=== PATIENT | male | born 1955 | race Caucasian/White ===

== ENCOUNTER 2019-04-18 11:03 | Observation (INO) | payer BC ==
--- NOTE | 2019-04-18 11:18 | EDM.PDOC ---
<Sarah Rm - Last Filed: 04/18/19 14:49> ED HPI GENERAL MEDICAL PROBLEM - General Chief Complaint: Gastrointestinal Problem Stated Complaint: [facility] Time Seen by Provider: 04/18/19 11:17 Source of Information: Reports: Patient History Limitations: Reports: No Limitations - History of Present Illness INITIAL COMMENTS - FREE TEXT/NARRATIVE: 63 year old male presents to the ED by [facility]. Pt reports that he got up this morning and had his coffee and then went and had a bowel movement. This occurred about 0800 this morning. Pt states that he felt like he was having diarrhea but when he got up from the toilet it was full of susan red blood. The patient then went to the [place] [facility] and while there had a syncopal episode which he does not remember. The patient was then transported here by EMS. Pt states that he takes a baby aspirin daily and does use ibuprofen frequently for aches and pains. He says some days he does not take any but some days he takes it several times per day. When he does take it, he takes 2 tabs. He most recently took this at about 0800 this morning. - Related Data Allergies Allergy/AdvReac Type Severity Reaction Status Date / Time Penicillins Allergy Intermediate Hives Verified 04/18/19 11:17 Home Meds: Home Meds Aspirin 81 mg PO DAILY 04/18/19 [History] Losartan [Cozaar] 100 mg PO DAILY 04/18/19 [History] Multivitamin [Multivitamins] 1 tab PO DAILY 04/18/19 [History] hydroCHLOROthiazide [Hydrochlorothiazide] 25 mg PO DAILY 04/18/19 [History] ED ROS GENERAL - Review of Systems Review Of Systems: See Below Constitutional: Reports: No Symptoms HEENT: Reports: No Symptoms Respiratory: Reports: No Symptoms Cardiovascular: Reports: Lightheadedness. Denies: Chest Pain, Dyspnea on Exertion, Edema, Palpitations Endocrine: Reports: No Symptoms GI/Abdominal: Reports: Bloody Stool, Hematochezia. Denies: Abdominal Pain, Black Stool, Hematemesis, Melena, Nausea, Vomiting Musculoskeletal: Reports: No Symptoms Skin: Reports: No Symptoms Neurological: Reports: No Symptoms Psychiatric: Reports: No Symptoms Hematologic/Lymphatic: Reports: No Symptoms Immunologic: Reports: No Symptoms ED EXAM, GI/ABD - Physical Exam Exam: See Below Text/Narrative:: Rectal exam performed. No hemorrhoids noted. No fissures noted in the rectal vault. Hemoccult positive. Exam Limited By: No Limitations General Appearance: Alert, WD/WN, No Apparent Distress Ears: Normal External Exam, Hearing Grossly Normal Nose: Normal Inspection Throat/Mouth: Normal Inspection, Normal Lips, Normal Oropharynx, Normal Voice, No Airway Compromise Head: Atraumatic, Normocephalic Neck: Normal Inspection, Supple, Non-Tender Respiratory/Chest: No Respiratory Distress, Lungs Clear, Normal Breath Sounds, No Accessory Muscle Use, Chest Non-Tender Cardiovascular: Normal Peripheral Pulses, Regular Rate, Rhythm, No Edema, No Murmur GI/Abdominal Exam: Normal Bowel Sounds, Soft, Non-Tender, No Distention. No: Guarding, Rigid (Male) Exam: Deferred Rectal (Males) Exam: Normal Exam, Normal Rectal Tone, Bloody Stool, Heme + Stool. No: Hemorrhoids, Rectal Fissure, Tenderness Extremities: Normal Inspection, Normal Range of Motion, Non-Tender, No Pedal Edema, Normal Capillary Refill Neurological: Alert, Oriented, Normal Cognition, No Motor/Sensory Deficits Psychiatric: Normal Affect, Normal Mood Skin Exam: Warm, Dry, Intact, Normal Color, No Rash Lymphatic: No Adenopathy Course - Vital Signs Last Recorded V/S: Last Vital Signs Temp 37.0 C 04/18/19 11:12 Pulse 68 04/18/19 11:12 Resp 11 L 04/18/19 11:12 BP 144/11 H 04/18/19 11:12 Pulse Ox 98 04/18/19 11:12 Orthostatic Blood Pressure [ 139/96 Standing] Orthostatic Blood Pressure [ 145/102 Sitting] Orthostatic Blood Pressure [ 153/94 Supine] - Orders/Labs/Meds Orders: Active Orders 24 hr Category Date Time Status EKG 12 Lead [EKG Documentation Completion] [RC] STAT Care 04/18/19 11:44 Active Labs: Laboratory Tests 04/18/19 04/18/19 04/18/19 Range/Units 12:14 12:14 12:14 WBC 13.61 H (4.23-9.07) K/mm3 RBC 4.23 L (4.63-6.08) M/mm3 Hgb 13.3 L D (13.7-17.5) gm/dl Hct 39.0 L (40.1-51.0) % MCV 92.2 (79.0-92.2) fl MCH 31.4 (25.7-32.2) pg MCHC 34.1 (32.2-35.5) g/dl RDW Std Deviation 42.0 (35.1-43.9) fL Plt Count 221 (163-337) K/mm3 MPV 10.1 (9.4-12.3) fl Neut % (Auto) 89.0 H (34.0-67.9) % Lymph % (Auto) 6.5 L (21.8-53.1) % [place] % (Auto) 4.2 L (5.3-12.2) % Eos % (Auto) 0.1 L (0.8-7.0) Baso % (Auto) 0.1 (0.1-1.2) % Neut # (Auto) 12.09 H (1.78-5.38) K/mm3 Lymph # (Auto) 0.89 L (1.32-3.57) K/mm3 [place] # (Auto) 0.57 (0.30-0.82) K/mm3 Eos # (Auto) 0.02 L (0.04-0.54) K/mm3 Baso # (Auto) 0.02 (0.01-0.08) K/mm3 Manual Slide Review Abnormal smear PT 11.4 (9.7-12.0) SECONDS INR 1.05 APTT 27 (22-31) SECONDS Sodium 139 (136-145) mEq/L Potassium 4.1 (3.5-5.1) mEq/L Chloride 106 (98-107) mEq/L Carbon Dioxide 21 (21-32) mEq/L Anion Gap 16.1 H (5-15) BUN 20 H (7-18) mg/dL Creatinine 0.9 (0.7-1.3) mg/dL Est Cr Clr Drug Dosing 83.39 mL/min Estimated GFR (MDRD) > 60 (>60) mL/min BUN/Creatinine Ratio 22.2 H (14-18) Glucose 166 H (80-115) mg/dL Calcium 8.1 L (8.5-10.1) mg/dL Total Bilirubin 1.5 H (0.2-1.0) mg/dL AST 44 H (15-37) U/L ALT 71 H (16-63) U/L Alkaline Phosphatase 74 (46-116) U/L Total Protein 6.3 L (6.4-8.2) g/dl Albumin 3.3 L (3.4-5.0) g/dl Globulin 3.0 gm/dL Albumin/Globulin Ratio 1.1 (1-2) Blood Type Gel Antibody Screen 04/18/19 Range/Units 12:14 WBC (4.23-9.07) K/mm3 RBC (4.63-6.08) M/mm3 Hgb (13.7-17.5) gm/dl Hct (40.1-51.0) % MCV (79.0-92.2) fl MCH (25.7-32.2) pg MCHC (32.2-35.5) g/dl RDW Std Deviation (35.1-43.9) fL Plt Count (163-337) K/mm3 MPV (9.4-12.3) fl Neut % (Auto) (34.0-67.9) % Lymph % (Auto) (21.8-53.1) % [place] % (Auto) (5.3-12.2) % Eos % (Auto) (0.8-7.0) Baso % (Auto) (0.1-1.2) % Neut # (Auto) (1.78-5.38) K/mm3 Lymph # (Auto) (1.32-3.57) K/mm3 [place] # (Auto) (0.30-0.82) K/mm3 Eos # (Auto) (0.04-0.54) K/mm3 Baso # (Auto) (0.01-0.08) K/mm3 Manual Slide Review PT (9.7-12.0) SECONDS INR APTT (22-31) SECONDS Sodium (136-145) mEq/L Potassium (3.5-5.1) mEq/L Chloride (98-107) mEq/L Carbon Dioxide (21-32) mEq/L Anion Gap (5-15) BUN (7-18) mg/dL Creatinine (0.7-1.3) mg/dL Est Cr Clr Drug Dosing mL/min Estimated GFR (MDRD) (>60) mL/min BUN/Creatinine Ratio (14-18) Glucose (80-115) mg/dL Calcium (8.5-10.1) mg/dL Total Bilirubin (0.2-1.0) mg/dL AST (15-37) U/L ALT (16-63) U/L Alkaline Phosphatase (46-116) U/L Total Protein (6.4-8.2) g/dl Albumin (3.4-5.0) g/dl Globulin gm/dL Albumin/Globulin Ratio (1-2) Blood Type A POSITIVE Gel Antibody Screen Negative Meds: Medications Discontinued Medications Generic Name Dose Route Start Last Admin Trade Name Senthil PRN Reason Stop Dose Admin Lactated Ringer's 1,000 mls @ 999 mls/hr 04/18/19 12:18 04/18/19 12:22 Ringers, Lactated IV 04/18/19 13:18 999 mls/hr .BOLUS ONE Administration Sodium Chloride Confirm 04/18/19 12:16 04/18/19 12:23 Normal Saline Administered 04/18/19 12:17 Not Given Dose 1,000 mls @ as directed .ROUTE .STK-MED ONE - Re-Assessments/Exams Free Text/Narrative Re-Assessment/Exam: 04/18/19 12:22 Pt's heart rate dropped into the 40's and his blood pressure to 60 systolic when lab in drawing blood. Pt was placed supine and given a Liter of LR. Departure - Departure Disposition: Admitted As Inpatient 68 Clinical Impression: Lower GI bleed - Discharge Information Referrals: Amanda Damon NP [Primary Care Provider] - Forms: ED Department Discharge <Spike Flores - Last Filed: 04/18/19 14:54> Social & Family History - Living Situation & Occupation Living situation: Reports: Occupation: Employed Course - Orders/Labs/Meds Orders: Active Orders 24 hr Category Date Time Status EKG 12 Lead [EKG Documentation Completion] [RC] STAT Care 04/18/19 11:44 Active Labs: Laboratory Tests 04/18/19 04/18/19 04/18/19 Range/Units 12:14 12:14 12:14 WBC 13.61 H (4.23-9.07) K/mm3 RBC 4.23 L (4.63-6.08) M/mm3 Hgb 13.3 L D (13.7-17.5) gm/dl Hct 39.0 L (40.1-51.0) % MCV 92.2 (79.0-92.2) fl MCH 31.4 (25.7-32.2) pg MCHC 34.1 (32.2-35.5) g/dl RDW Std Deviation 42.0 (35.1-43.9) fL Plt Count 221 (163-337) K/mm3 MPV 10.1 (9.4-12.3) fl Neut % (Auto) 89.0 H (34.0-67.9) % Lymph % (Auto) 6.5 L (21.8-53.1) % [place] % (Auto) 4.2 L (5.3-12.2) % Eos % (Auto) 0.1 L (0.8-7.0) Baso % (Auto) 0.1 (0.1-1.2) % Neut # (Auto) 12.09 H (1.78-5.38) K/mm3 Lymph # (Auto) 0.89 L (1.32-3.57) K/mm3 [place] # (Auto) 0.57 (0.30-0.82) K/mm3 Eos # (Auto) 0.02 L (0.04-0.54) K/mm3 Baso # (Auto) 0.02 (0.01-0.08) K/mm3 Manual Slide Review Abnormal smear PT 11.4 (9.7-12.0) SECONDS INR 1.05 APTT 27 (22-31) SECONDS Sodium 139 (136-145) mEq/L Potassium 4.1 (3.5-5.1) mEq/L Chloride 106 (98-107) mEq/L Carbon Dioxide 21 (21-32) mEq/L Anion Gap 16.1 H (5-15) BUN 20 H (7-18) mg/dL Creatinine 0.9 (0.7-1.3) mg/dL Est Cr Clr Drug Dosing 83.39 mL/min Estimated GFR (MDRD) > 60 (>60) mL/min BUN/Creatinine Ratio 22.2 H (14-18) Glucose 166 H (80-115) mg/dL Calcium 8.1 L (8.5-10.1) mg/dL Total Bilirubin 1.5 H (0.2-1.0) mg/dL AST 44 H (15-37) U/L ALT 71 H (16-63) U/L Alkaline Phosphatase 74 (46-116) U/L Total Protein 6.3 L (6.4-8.2) g/dl Albumin 3.3 L (3.4-5.0) g/dl Globulin 3.0 gm/dL Albumin/Globulin Ratio 1.1 (1-2) Blood Type Gel Antibody Screen 04/18/19 Range/Units 12:14 WBC (4.23-9.07) K/mm3 RBC (4.63-6.08) M/mm3 Hgb (13.7-17.5) gm/dl Hct (40.1-51.0) % MCV (79.0-92.2) fl MCH (25.7-32.2) pg MCHC (32.2-35.5) g/dl RDW Std Deviation (35.1-43.9) fL Plt Count (163-337) K/mm3 MPV (9.4-12.3) fl Neut % (Auto) (34.0-67.9) % Lymph % (Auto) (21.8-53.1) % [place] % (Auto) (5.3-12.2) % Eos % (Auto) (0.8-7.0) Baso % (Auto) (0.1-1.2) % Neut # (Auto) (1.78-5.38) K/mm3 Lymph # (Auto) (1.32-3.57) K/mm3 [place] # (Auto) (0.30-0.82) K/mm3 Eos # (Auto) (0.04-0.54) K/mm3 Baso # (Auto) (0.01-0.08) K/mm3 Manual Slide Review PT (9.7-12.0) SECONDS INR APTT (22-31) SECONDS Sodium (136-145) mEq/L Potassium (3.5-5.1) mEq/L Chloride (98-107) mEq/L Carbon Dioxide (21-32) mEq/L Anion Gap (5-15) BUN (7-18) mg/dL Creatinine (0.7-1.3) mg/dL Est Cr Clr Drug Dosing mL/min Estimated GFR (MDRD) (>60) mL/min BUN/Creatinine Ratio (14-18) Glucose (80-115) mg/dL Calcium (8.5-10.1) mg/dL Total Bilirubin (0.2-1.0) mg/dL AST (15-37) U/L ALT (16-63) U/L Alkaline Phosphatase (46-116) U/L Total Protein (6.4-8.2) g/dl Albumin (3.4-5.0) g/dl Globulin gm/dL Albumin/Globulin Ratio (1-2) Blood Type A POSITIVE Gel Antibody Screen Negative Meds: Medications Discontinued Medications Generic Name Dose Route Start Last Admin Trade Name Levq PRN Reason Stop Dose Admin Lactated Ringer's 1,000 mls @ 999 mls/hr 04/18/19 12:18 04/18/19 12:22 Ringers, Lactated IV 04/18/19 13:18 999 mls/hr .BOLUS ONE Administration Sodium Chloride Confirm 04/18/19 12:16 04/18/19 12:23 Normal Saline Administered 04/18/19 12:17 Not Given Dose 1,000 mls @ as directed .ROUTE .STK-MED ONE - Re-Assessments/Exams Free Text/Narrative Re-Assessment/Exam: 04/18/19 14:[address] Dee some time back, he wanted us discussed the patient with Dr. Manuel the on-call surgeon before excepting the patient. The surgeon was in the middle of the procedure and just got back to me. He is willing to see the patient in consultation. Case discussed with Dr. Dee again who is willing to accept the patient. Departure - Departure Time of Disposition: 14:40
[2019-04-18] MEDS ORDERED: LORazepam 2 MG/ML SDV IVPUSH ONE (11:33)
[2019-04-18] MEDS ORDERED: Sodium Chloride 0.9% 1,000 ML ONE (12:16)
[2019-04-18] MEDS ORDERED: Lactated Ringers 1,000 ML IV ONE (12:18)
--- NOTE | 2019-04-18 12:52 | CR ---
Abdomen: Supine view of the abdomen was obtained. Comparison: Previous abdominal x-ray of 06/22/12. Bowel gas pattern is normal. Calcifications are seen within the pelvis which are felt compatible with phleboliths. Bony structures show mild degenerative change scattered within the spine. Impression: 1. Incidental findings. Nothing acute is seen on supine abdominal x-ray. Diagnostic code #2
[2019-04-18] MEDS ORDERED: Polyethylene Glycol/Electrolytes 4,000 ML Bottle PO ONE (17:21)
[2019-04-18] MEDS ORDERED: Ondansetron 4 MG/2 ML SDV IV PRN (18:05)
[2019-04-18] MEDS ORDERED: traMADol 50 MG Tab PO PRN (20:17)
--- NOTE | 2019-04-18 20:29 | PCM.PN ---
- General Info Date of Service: 04/18/19 Admission Dx/Problem (Free Text): GI Bleed Subjective Update: 63-year-old male with history of diverticulitis and previous bowel surgery for it sounds like intussusception presented to his primary care provider in Home with multiple bloody bowel movements this morning. Patient states his first bowel movement in the morning was bloody and he had several subsequent and he went to his primary care provider. Wall he was being evaluated he developed diaphoresis became lightheaded and then lost consciousness. When he woke up he had significant amount of blood from his rectum and his provider and team were treating him. Patient IV placed and EMS was called. Patient has syncopal episode on the table so did not have any fall. Patient takes a low-dose aspirin daily and uses ibuprofen regularly. He does not smoke and rarely drinks. In the emergency room he had another presyncopal episode when he was having his blood drawn. His heart rate dropped into the 40s and systolic blood pressure dropped to 60. He was given 1 L LR and recovered. Initial vital signs: Temperature 37.0C, pulse 68, respiratory rate of 11, blood pressure 144 systolic, but diastolic was put in in error. Orthostatics were negative. Labs: White count 13.6, hemoglobin 13.3, platelets 221, INR 1.05, PT 11.4, APTT 27, electrolytes normal, BUN 20, creatinine 0.9, total bilirubin 1.5, AST 44, ALT 71 , glucose 166, anion gap 16.1. Repeat hemoglobin 13.9. - Patient Data Vitals - Most Recent: Last Vital Signs Temp 98.1 F 04/18/19 16:02 Pulse 81 04/18/19 16:02 Resp 18 04/18/19 16:02 BP 148/87 H 04/18/19 16:02 Pulse Ox 98 04/18/19 16:02 Orthostatic Blood Pressure [ 139/96 Standing] Orthostatic Blood Pressure [ 145/102 Sitting] Orthostatic Blood Pressure [ 153/94 Supine] Weight - Most Recent: 199 lb 6.4 oz I&O - Last 24 Hours: Intake & Output 04/18/19 04/18/19 04/18/19 06:59 14:59 22:59 Output Total 200 300 Balance -200 -300 Lab Results Last 24 Hours: Laboratory Results - last 24 hr 04/18/19 04/18/1919 Range/Units 12:14 12:14 12:14 WBC 13.61 H (4.23-9.07) K/mm3 RBC 4.23 L (4.63-6.08) M/mm3 Hgb 13.3 L D (13.7-17.5) gm/dl Hct 39.0 L (40.1-51.0) % MCV 92.2 (79.0-92.2) fl MCH 31.4 (25.7-32.2) pg MCHC 34.1 (32.2-35.5) g/dl RDW Std Deviation 42.0 (35.1-43.9) fL Plt Count 221 (163-337) K/mm3 MPV 10.1 (9.4-12.3) fl Neut % (Auto) 89.0 H (34.0-67.9) % Lymph % (Auto) 6.5 L (21.8-53.1) % [place] % (Auto) 4.2 L (5.3-12.2) % Eos % (Auto) 0.1 L (0.8-7.0) Baso % (Auto) 0.1 (0.1-1.2) % Neut # (Auto) 12.09 H (1.78-5.38) K/mm3 Lymph # (Auto) 0.89 L (1.32-3.57) K/mm3 [place] # (Auto) 0.57 (0.30-0.82) K/mm3 Eos # (Auto) 0.02 L (0.04-0.54) K/mm3 Baso # (Auto) 0.02 (0.01-0.08) K/mm3 Manual Slide Review Abnormal smear PT 11.4 (9.7-12.0) SECONDS INR 1.05 APTT 27 (22-31) SECONDS Sodium 139 (136-145) mEq/L Potassium 4.1 (3.5-5.1) mEq/L Chloride 106 (98-107) mEq/L Carbon Dioxide 21 (21-32) mEq/L Anion Gap 16.1 H (5-15) BUN 20 H (7-18) mg/dL Creatinine 0.9 (0.7-1.3) mg/dL Est Cr Clr Drug Dosing 83.39 mL/min Estimated GFR (MDRD) > 60 (>60) mL/min BUN/Creatinine Ratio 22.2 H (14-18) Glucose 166 H (80-115) mg/dL Calcium 8.1 L (8.5-10.1) mg/dL Total Bilirubin 1.5 H (0.2-1.0) mg/dL AST 44 H (15-37) U/L ALT 71 H (16-63) U/L Alkaline Phosphatase 74 (46-116) U/L Total Protein 6.3 L (6.4-8.2) g/dl Albumin 3.3 L (3.4-5.0) g/dl Globulin 3.0 gm/dL Albumin/Globulin Ratio 1.1 (1-2) Blood Type Gel Antibody Screen 04/18/19 04/18/19 Range/Units 12:14 17:52 WBC (4.23-9.07) K/mm3 RBC (4.63-6.08) M/mm3 Hgb 13.9 (13.7-17.5) gm/dl Hct 40.1 (40.1-51.0) % MCV (79.0-92.2) fl MCH (25.7-32.2) pg MCHC (32.2-35.5) g/dl RDW Std Deviation (35.1-43.9) fL Plt Count (163-337) K/mm3 MPV (9.4-12.3) fl Neut % (Auto) (34.0-67.9) % Lymph % (Auto) (21.8-53.1) % [place] % (Auto) (5.3-12.2) % Eos % (Auto) (0.8-7.0) Baso % (Auto) (0.1-1.2) % Neut # (Auto) (1.78-5.38) K/mm3 Lymph # (Auto) (1.32-3.57) K/mm3 [place] # (Auto) (0.30-0.82) K/mm3 Eos # (Auto) (0.04-0.54) K/mm3 Baso # (Auto) (0.01-0.08) K/mm3 Manual Slide Review PT (9.7-12.0) SECONDS INR APTT (22-31) SECONDS Sodium (136-145) mEq/L Potassium (3.5-5.1) mEq/L Chloride (98-107) mEq/L Carbon Dioxide (21-32) mEq/L Anion Gap (5-15) BUN (7-18) mg/dL Creatinine (0.7-1.3) mg/dL Est Cr Clr Drug Dosing mL/min Estimated GFR (MDRD) (>60) mL/min BUN/Creatinine Ratio (14-18) Glucose (80-115) mg/dL Calcium (8.5-10.1) mg/dL Total Bilirubin (0.2-1.0) mg/dL AST (15-37) U/L ALT (16-63) U/L Alkaline Phosphatase (46-116) U/L Total Protein (6.4-8.2) g/dl Albumin (3.4-5.0) g/dl Globulin gm/dL Albumin/Globulin Ratio (1-2) Blood Type A POSITIVE Gel Antibody Screen Negative Med Orders - Current: Current Medications Dextrose/Lactated Ringer's (Dextrose 5%-Lactated Ringers) 1,000 mls @ 75 mls/ hr IV ASDIRECTED RODRIGO Ondansetron HCl (Zofran) 4 mg IV Q4H PRN PRN Reason: Nausea/Vomiting Tramadol HCl (Ultram) 50 mg PO BEDTIME PRN PRN Reason: Rib Pain Discontinued Medications Lactated Ringer's (Ringers, Lactated) 1,000 mls @ 999 mls/hr IV .BOLUS ONE Stop: 04/18/19 13:18 Last Admin: 04/18/19 12:22 Dose: 999 mls/hr Sodium Chloride (Normal Saline) Confirm Administered Dose 1,000 mls @ as directed .ROUTE .STK-MED ONE Stop: 04/18/19 12:17 Last Admin: 04/18/19 12:23 Dose: Not Given Polyethylene Glycol/Electrolytes (Golytely) 4,000 ml PO ONETIME ONE Stop: 04/18/19 17:22 Last Admin: 04/18/19 19:05 Dose: 4,000 ml - My Orders Last 24 Hours: My Active Orders 04/18/19 18:05 Up ad Kim [] ASDIRECTED Ondansetron [Zofran] 4 mg IV Q4H PRN Resuscitation Status Routine 04/18/19 18:06 Oxygen Therapy [RC] PRN VTE/DVT Education [RC] PER UNIT ROUTINE Vital Signs [RC] Q4HR 04/18/19 20:17 traMADol [Ultram] 50 mg PO BEDTIME PRN 04/18/19 20:19 Antiembolic Devices [RC] PER UNIT ROUTINE Anti-Embolism Stockings AK [Antiembolic Hose] [OM.PC] Routine 04/18/19 20:30 Dextrose 5%-Lactated Ringers 1,000 ml IV ASDIRECTED 04/19/19 05:11 CBC WITH AUTO DIFF [HEME] AM CMP [COMPREHENSIVE METABOLIC PN,CMP] [CHEM] AM
[2019-04-18] MEDS ORDERED: Dextrose 5%-Lactated Ringers 1,000 ML IV SCH (20:30)
--- NOTE | 2019-04-18 20:35 | PCM.HP.2 ---
H&P History of Present Illness - General Date of Service: 04/18/19 Admit Problem/Dx: GI Bleed - History of Present Illness Initial Comments - Free Text/Narative: 63-year-old male with history of diverticulitis and previous bowel surgery for it sounds like intussusception presented to his primary care provider in [place] with multiple bloody bowel movements this morning. Patient states his first bowel movement in the morning was bloody and he had several subsequent and he went to his primary care provider. Wall he was being evaluated he developed diaphoresis became lightheaded and then lost consciousness. When he woke up he had significant amount of blood from his rectum and his provider and team were treating him. Patient IV placed and EMS was called. Patient has syncopal episode on the table so did not have any fall. Patient takes a low-dose aspirin daily and uses ibuprofen regularly. He does not smoke and rarely drinks. In the emergency room he had another presyncopal episode when he was having his blood drawn. His heart rate dropped into the 40s and systolic blood pressure dropped to 60. He was given 1 L LR and recovered. Initial vital signs: Temperature 37.0C, pulse 68, respiratory rate of 11, blood pressure 144 systolic, but diastolic was put in in error. Orthostatics were negative. Labs: White count 13.6, hemoglobin 13.3, platelets 221, INR 1.05, PT 11.4, APTT 27, electrolytes normal, BUN 20, creatinine 0.9, total bilirubin 1.5, AST 44, ALT 71 , glucose 166, anion gap 16.1. Repeat hemoglobin 13.9. - Related Data Allergies/Adverse Reactions: Allergies Allergy/AdvReac Type Severity Reaction Status Date / Time Penicillins Allergy Intermediate Hives Verified 04/18/19 11:17 codeine AdvReac Anxiety Verified 04/18/19 16:34 Home Medications: Home Meds Aspirin 81 mg PO DAILY 04/18/19 [History] Losartan [Cozaar] 100 mg PO DAILY 04/18/19 [History] Multivitamin [Multivitamins] 1 tab PO DAILY 04/18/19 [History] hydroCHLOROthiazide [Hydrochlorothiazide] 25 mg PO DAILY 04/18/19 [History] traMADol [Ultram] 50 mg PO BEDTIME PRN 04/18/19 [History] Past Medical History HEENT History: Reports: Cataract Cardiovascular History: Reports: Hypertension Gastrointestinal History: Reports: Hemorrhoids, Other (See Below) Other Gastrointestinal History: diverticulosis Musculoskeletal History: Reports: Arthritis - Past Surgical History GI Surgical History: Reports: Other (See Below) Other GI Surgeries/Procedures: hiatal hernia repair with mesh Musculoskeletal Surgical History: Reports: Other (See Below) Other Musculoskeletal Surgeries/Procedures:: knee surgery d/t torn meniscus Social & Family History - Family History Family Medical History: Noncontributory - Tobacco Use Smoking Status *Q: Never Smoker Second Hand Smoke Exposure: No - Caffeine Use Caffeine Use: Reports: Coffee Other Caffeine Use: 2-3 cups coffee. 1 soda in afternoon - Recreational Drug Use Recreational Drug Use: No - Living Situation & Occupation Living situation: Reports: Occupation: Employed H&P Review of Systems - Review of Systems: Review Of Systems: ROS reveals no pertinent complaints other than HPI. Exam - Exam Exam: See Below - Vital Signs Vital Signs: Last Vital Signs Temp 98.1 F 04/18/19 16:02 Pulse 81 04/18/19 16:02 Resp 18 04/18/19 16:02 BP 148/87 H 04/18/19 16:02 Pulse Ox 98 04/18/19 16:02 Orthostatic Blood Pressure [ 139/96 Standing] Orthostatic Blood Pressure [ 145/102 Sitting] Orthostatic Blood Pressure [ 153/94 Supine] Weight: 199 lb 6.4 oz - Exam General: Alert, Oriented, 4 HEENT: PERRLA, Hearing Intact, Mucosa Moist & [place], Nares Patent, Normal Nasal Septum, Posterior Pharynx Clear, Conjunctiva Clear, EOMI, EACs Clear, TMs Clear Neck: Supple, Trachea Midline, 2 Lungs: Clear to Auscultation, Normal Respiratory Effort Cardiovascular: Regular Rate, Regular Rhythm GI/Abdominal Exam: Normal Bowel Sounds, Soft, Non-Tender, No Organomegaly, No Distention, No Abnormal Bruit, No Mass, Pelvis Stable Back Exam: Normal Inspection Extremities: Normal Inspection, Normal Range of Motion, Non-Tender, No Pedal Edema, Normal Capillary Refill Skin: Warm, Dry, Intact Neurological: Cranial Nerves Intact Neuro Extensive - Mental Status: Alert, Oriented x3, Normal Mood/Affect, Normal Cognition Neuro Extensive - Motor, Sensory, Reflexes: CN II-XII Intact Psychiatric: Alert, Normal Affect, Normal Mood - Patient Data Lab Results Last 24 hrs: Laboratory Results - last 24 hr 11/07/19 11/07/19 11/07/19 Range/Units 12:14 12:14 12:14 WBC 13.61 H (4.23-9.07) K/mm3 RBC 4.23 L (4.63-6.08) M/mm3 Hgb 13.3 L D (13.7-17.5) gm/dl Hct 39.0 L (40.1-51.0) % MCV 92.2 (79.0-92.2) fl MCH 31.4 (25.7-32.2) pg MCHC 34.1 (32.2-35.5) g/dl RDW Std Deviation 42.0 (35.1-43.9) fL Plt Count 221 (163-337) K/mm3 MPV 10.1 (9.4-12.3) fl Neut % (Auto) 89.0 H (34.0-67.9) % Lymph % (Auto) 6.5 L (21.8-53.1) % [place] % (Auto) 4.2 L (5.3-12.2) % Eos % (Auto) 0.1 L (0.8-7.0) Baso % (Auto) 0.1 (0.1-1.2) % Neut # (Auto) 12.09 H (1.78-5.38) K/mm3 Lymph # (Auto) 0.89 L (1.32-3.57) K/mm3 [place] # (Auto) 0.57 (0.30-0.82) K/mm3 Eos # (Auto) 0.02 L (0.04-0.54) K/mm3 Baso # (Auto) 0.02 (0.01-0.08) K/mm3 Manual Slide Review Abnormal smear PT 11.4 (9.7-12.0) SECONDS INR 1.05 APTT 27 (22-31) SECONDS Sodium 139 (136-145) mEq/L Potassium 4.1 (3.5-5.1) mEq/L Chloride 106 (98-107) mEq/L Carbon Dioxide 21 (21-32) mEq/L Anion Gap 16.1 H (5-15) BUN 20 H (7-18) mg/dL Creatinine 0.9 (0.7-1.3) mg/dL Est Cr Clr Drug Dosing 83.39 mL/min Estimated GFR (MDRD) > 60 (>60) mL/min BUN/Creatinine Ratio 22.2 H (14-18) Glucose 166 H (80-115) mg/dL Calcium 8.1 L (8.5-10.1) mg/dL Total Bilirubin 1.5 H (0.2-1.0) mg/dL AST 44 H (15-37) U/L ALT 71 H (16-63) U/L Alkaline Phosphatase 74 (46-116) U/L Total Protein 6.3 L (6.4-8.2) g/dl Albumin 3.3 L (3.4-5.0) g/dl Globulin 3.0 gm/dL Albumin/Globulin Ratio 1.1 (1-2) Blood Type Gel Antibody Screen 04/18/19 04/18/19 Range/Units 12:14 17:52 WBC (4.23-9.07) K/mm3 RBC (4.63-6.08) M/mm3 Hgb 13.9 (13.7-17.5) gm/dl Hct 40.1 (40.1-51.0) % MCV (79.0-92.2) fl MCH (25.7-32.2) pg MCHC (32.2-35.5) g/dl RDW Std Deviation (35.1-43.9) fL Plt Count (163-337) K/mm3 MPV (9.4-12.3) fl Neut % (Auto) (34.0-67.9) % Lymph % (Auto) (21.8-53.1) % [place] % (Auto) (5.3-12.2) % Eos % (Auto) (0.8-7.0) Baso % (Auto) (0.1-1.2) % Neut # (Auto) (1.78-5.38) K/mm3 Lymph # (Auto) (1.32-3.57) K/mm3 [place] # (Auto) (0.30-0.82) K/mm3 Eos # (Auto) (0.04-0.54) K/mm3 Baso # (Auto) (0.01-0.08) K/mm3 Manual Slide Review PT (9.7-12.0) SECONDS INR APTT (22-31) SECONDS Sodium (136-145) mEq/L Potassium (3.5-5.1) mEq/L Chloride (98-107) mEq/L Carbon Dioxide (21-32) mEq/L Anion Gap (5-15) BUN (7-18) mg/dL Creatinine (0.7-1.3) mg/dL Est Cr Clr Drug Dosing mL/min Estimated GFR (MDRD) (>60) mL/min BUN/Creatinine Ratio (14-18) Glucose (80-115) mg/dL Calcium (8.5-10.1) mg/dL Total Bilirubin (0.2-1.0) mg/dL AST (15-37) U/L ALT (16-63) U/L Alkaline Phosphatase (46-116) U/L Total Protein (6.4-8.2) g/dl Albumin (3.4-5.0) g/dl Globulin gm/dL Albumin/Globulin Ratio (1-2) Blood Type A POSITIVE Gel Antibody Screen Negative Result Diagrams: 04/18/19 17:52 04/18/19 12:14 Problem List Initiated/Reviewed/Updated: Yes Orders Last 24hrs: Active Orders 24 hr Category Date Time Status Patient Status [ADT] Routine ADT 04/18/19 15:37 Active Antiembolic Devices [RC] PER UNIT ROUTINE Care 04/18/19 20:19 Ordered EKG 12 Lead [EKG Documentation Completion] [RC] STAT Care 04/18/19 11:44 Active Notify Provider Consults [RC] ASDIRECTED Care 04/18/19 14:52 Active Oxygen Therapy [RC] PRN Care 04/18/19 18:06 Active Up ad Kim [RC] ASDIRECTED Care 04/18/19 18:05 Active VTE/DVT Education [RC] PER UNIT ROUTINE Care 04/18/19 18:06 Active Vital Signs [RC] Q4HR Care 04/18/19 18:06 Active Consult to Physician [CONS] Stat Cons 04/18/19 14:51 Active Clear Liquid Diet [DIET] Diet 04/18/19 Dinner Active NPO After Midnight [Nothing per Oral After Midnight Diet 04/19/19 Breakfast Active Diet] [DIET] CBC WITH AUTO DIFF [HEME] AM Lab 04/19/19 05:11 Ordered CMP [COMPREHENSIVE METABOLIC PN,CMP] [CHEM] AM Lab 04/19/19 05:11 Ordered Dextrose 5%-Lactated Ringers 1,000 ml Med 04/18/19 20:30 Ordered IV ASDIRECTED Ondansetron [Zofran] Med 04/18/19 18:05 Active 4 mg IV Q4H PRN traMADol [Ultram] Med 04/18/19 20:17 Ordered 50 mg PO BEDTIME PRN Anti-Embolism Stockings [place] [Antiembolic Hose] [OM.PC] Oth 04/18/19 20:19 Ordered Routine Schedule Procedure [COMM] Routine Oth 04/18/19 17:49 Ordered Resuscitation Status Routine Resus Stat 04/18/19 18:05 Ordered Medication Orders Dextrose/Lactated Ringer's (Dextrose 5%-Lactated Ringers) 1,000 mls @ 75 mls/ hr IV ASDIRECTED RODRIGO Ondansetron HCl (Zofran) 4 mg IV Q4H PRN PRN Reason: Nausea/Vomiting Tramadol HCl (Ultram) 50 mg PO BEDTIME PRN PRN Reason: Rib Pain Assessment/Plan Comment:: Assessment * Lower GI bleed * Hemoglobin 13.3 with repeat 13.9 * Positive guaiac from ER physician * Dr. Manuel, surgeon, consulted by emergency room physician * history of diverticulosis and previous colon surgery without resection * History of hypertension Plan * Refer for observation medical/surgical floor telemetry * plan colonoscopy in the morning. * Repeat CMP and CBC in the morning. * If he has any more significant hematochezia will repeat hemoglobin. * Hold blood pressure medications until after procedure * Nothing by mouth after midnight. * VTE prophylaxis with compression stockings * CODE STATUS: Full code * Length of stay 1-2 days - Mortality Measure Prognosis:: Good
--- NOTE | 2019-04-19 07:38 | PCM.PN ---
- General Info Date of Service: 04/19/19 Functional Status: Reports: Pain Controlled, Tolerating Diet, Ambulating, Urinating, New Symptoms - Review of Systems General: Reports: No Symptoms. Denies: Fever, Weakness, Fatigue, Malaise, Chills HEENT: Reports: No Symptoms. Denies: Headaches, Sore Throat Pulmonary: Reports: No Symptoms. Denies: Shortness of Breath, Cough, Sputum Cardiovascular: Reports: No Symptoms. Denies: Chest Pain, Palpitations, Dyspnea on Exertion, Edema Gastrointestinal: Reports: Diarrhea (bowel prep ), Flatus, Hematochezia ( reports mild at beginning of bowel prep but has since resolved. ). Denies: Abdominal Pain, Constipation, Nausea, Vomiting Genitourinary: Reports: No Symptoms. Denies: Pain Musculoskeletal: Reports: No Symptoms Skin: Reports: No Symptoms. Denies: Cyanosis Neurological: Reports: No Symptoms. Denies: Confusion Psychiatric: Reports: No Symptoms - Patient Data Vitals - Most Recent: Last Vital Signs Temp 98.1 F 04/18/19 23:24 Pulse 66 04/19/19 04:58 Resp 18 04/19/19 04:58 BP 134/95 H 04/19/19 04:58 Pulse Ox 96 04/19/19 04:58 Orthostatic Blood Pressure [ 139/96 Standing] Orthostatic Blood Pressure [ 145/102 Sitting] Orthostatic Blood Pressure [ 153/94 Supine] Weight - Most Recent: 197 lb 4.8 oz I&O - Last 24 Hours: Intake & Output 04/18/19 04/19/19 04/19/19 22:59 06:59 14:59 Intake Total 400 2800 Output Total 300 Balance 100 2800 Lab Results Last 24 Hours: Laboratory Results - last 24 hr 04/18/19 04/18/19 04/18/19 Range/Units 12:14 12:14 12:14 WBC 13.61 H (4.23-9.07) K/mm3 RBC 4.23 L (4.63-6.08) M/mm3 Hgb 13.3 L D (13.7-17.5) gm/dl Hct 39.0 L (40.1-51.0) % MCV 92.2 (79.0-92.2) fl MCH 31.4 (25.7-32.2) pg MCHC 34.1 (32.2-35.5) g/dl RDW Std Deviation 42.0 (35.1-43.9) fL Plt Count 221 (163-337) K/mm3 MPV 10.1 (9.4-12.3) fl Neut % (Auto) 89.0 H (34.0-67.9) % Lymph % (Auto) 6.5 L (21.8-53.1) % [place] % (Auto) 4.2 L (5.3-12.2) % Eos % (Auto) 0.1 L (0.8-7.0) Baso % (Auto) 0.1 (0.1-1.2) % Neut # (Auto) 12.09 H (1.78-5.38) K/mm3 Lymph # (Auto) 0.89 L (1.32-3.57) K/mm3 [place] # (Auto) 0.57 (0.30-0.82) K/mm3 Eos # (Auto) 0.02 L (0.04-0.54) K/mm3 Baso # (Auto) 0.02 (0.01-0.08) K/mm3 Manual Slide Review Abnormal smear PT 11.4 (9.7-12.0) SECONDS INR 1.05 APTT 27 (22-31) SECONDS Sodium 139 (136-145) mEq/L Potassium 4.1 (3.5-5.1) mEq/L Chloride 106 (98-107) mEq/L Carbon Dioxide 21 (21-32) mEq/L Anion Gap 16.1 H (5-15) BUN 20 H (7-18) mg/dL Creatinine 0.9 (0.7-1.3) mg/dL Est Cr Clr Drug Dosing 83.39 mL/min Estimated GFR (MDRD) > 60 (>60) mL/min BUN/Creatinine Ratio 22.2 H (14-18) Glucose 166 H (80-115) mg/dL Calcium 8.1 L (8.5-10.1) mg/dL Total Bilirubin 1.5 H (0.2-1.0) mg/dL AST 44 H (15-37) U/L ALT 71 H (16-63) U/L Alkaline Phosphatase 74 (46-116) U/L Total Protein 6.3 L (6.4-8.2) g/dl Albumin 3.3 L (3.4-5.0) g/dl Globulin 3.0 gm/dL Albumin/Globulin Ratio 1.1 (1-2) Blood Type Gel Antibody Screen 04/18/19 04/18/19 04/19/19 Range/Units 12:14 17:52 04:10 WBC 7.96 (4.23-9.07) K/mm3 RBC 3.60 L (4.63-6.08) M/mm3 Hgb 13.9 11.6 L D (13.7-17.5) gm/dl Hct 40.1 33.8 L (40.1-51.0) % MCV 93.9 H (79.0-92.2) fl MCH 32.2 (25.7-32.2) pg MCHC 34.3 (32.2-35.5) g/dl RDW Std Deviation 43.4 (35.1-43.9) fL Plt Count 201 (163-337) K/mm3 MPV 9.8 (9.4-12.3) fl Neut % (Auto) 63.9 (34.0-67.9) % Lymph % (Auto) 27.9 (21.8-53.1) % [place] % (Auto) 6.4 (5.3-12.2) % Eos % (Auto) 1.1 (0.8-7.0) Baso % (Auto) 0.4 (0.1-1.2) % Neut # (Auto) 5.09 (1.78-5.38) K/mm3 Lymph # (Auto) 2.22 (1.32-3.57) K/mm3 [place] # (Auto) 0.51 (0.30-0.82) K/mm3 Eos # (Auto) 0.09 (0.04-0.54) K/mm3 Baso # (Auto) 0.03 (0.01-0.08) K/mm3 Manual Slide Review PT (9.7-12.0) SECONDS INR APTT (22-31) SECONDS Sodium (136-145) mEq/L Potassium (3.5-5.1) mEq/L Chloride (98-107) mEq/L Carbon Dioxide (21-32) mEq/L Anion Gap (5-15) BUN (7-18) mg/dL Creatinine (0.7-1.3) mg/dL Est Cr Clr Drug Dosing mL/min Estimated GFR (MDRD) (>60) mL/min BUN/Creatinine Ratio (14-18) Glucose (80-115) mg/dL Calcium (8.5-10.1) mg/dL Total Bilirubin (0.2-1.0) mg/dL AST (15-37) U/L ALT (16-63) U/L Alkaline Phosphatase (46-116) U/L Total Protein (6.4-8.2) g/dl Albumin (3.4-5.0) g/dl Globulin gm/dL Albumin/Globulin Ratio (1-2) Blood Type A POSITIVE Gel Antibody Screen Negative 04/19/19 Range/Units 04:10 WBC (4.23-9.07) K/mm3 RBC (4.63-6.08) M/mm3 Hgb (13.7-17.5) gm/dl Hct (40.1-51.0) % MCV (79.0-92.2) fl MCH (25.7-32.2) pg MCHC (32.2-35.5) g/dl RDW Std Deviation (35.1-43.9) fL Plt Count (163-337) K/mm3 MPV (9.4-12.3) fl Neut % (Auto) (34.0-67.9) % Lymph % (Auto) (21.8-53.1) % [place] % (Auto) (5.3-12.2) % Eos % (Auto) (0.8-7.0) Baso % (Auto) (0.1-1.2) % Neut # (Auto) (1.78-5.38) K/mm3 Lymph # (Auto) (1.32-3.57) K/mm3 [place] # (Auto) (0.30-0.82) K/mm3 Eos # (Auto) (0.04-0.54) K/mm3 Baso # (Auto) (0.01-0.08) K/mm3 Manual Slide Review PT (9.7-12.0) SECONDS INR APTT (22-31) SECONDS Sodium 144 (136-145) mEq/L Potassium 3.9 (3.5-5.1) mEq/L Chloride 108 H (98-107) mEq/L Carbon Dioxide 28 (21-32) mEq/L Anion Gap 11.9 (5-15) BUN 15 (7-18) mg/dL Creatinine 1.0 (0.7-1.3) mg/dL Est Cr Clr Drug Dosing 75.05 mL/min Estimated GFR (MDRD) > 60 (>60) mL/min BUN/Creatinine Ratio 15.0 (14-18) Glucose 137 H (80-115) mg/dL Calcium 8.1 L (8.5-10.1) mg/dL Total Bilirubin 1.5 H (0.2-1.0) mg/dL AST 34 (15-37) U/L ALT 57 (16-63) U/L Alkaline Phosphatase 66 (46-116) U/L Total Protein 5.7 L (6.4-8.2) g/dl Albumin 3.0 L (3.4-5.0) g/dl Globulin 2.7 gm/dL Albumin/Globulin Ratio 1.1 (1-2) Blood Type Gel Antibody Screen Med Orders - Current: Current Medications Dextrose/Lactated Ringer's (Dextrose 5%-Lactated Ringers) 1,000 mls @ 75 mls/ hr IV ASDIRECTED [facility] Last Admin: 04/18/19 20:54 Dose: 75 mls/hr Ondansetron HCl (Zofran) 4 mg IV Q4H PRN PRN Reason: Nausea/Vomiting Tramadol HCl (Ultram) 50 mg PO BEDTIME PRN PRN Reason: Rib Pain Discontinued Medications Lactated Ringer's (Ringers, Lactated) 1,000 mls @ 999 mls/hr IV .BOLUS ONE Stop: 04/18/19 13:18 Last Admin: 04/18/19 12:22 Dose: 999 mls/hr Sodium Chloride (Normal Saline) Confirm Administered Dose 1,000 mls @ as directed .ROUTE .STK-MED ONE Stop: 04/18/19 12:17 Last Admin: 04/18/19 12:23 Dose: Not Given Polyethylene Glycol/Electrolytes (Golytely) 4,000 ml PO ONETIME ONE Stop: 04/18/19 17:22 Last Admin: 04/18/19 19:05 Dose: 4,000 ml - Exam Quality Assessment: DVT Prophylaxis General: Alert, Oriented, Cooperative, No Acute Distress HEENT: Pupils Equal, Pupils Reactive, EOMI, Mucous Membr. Moist/[place] Neck: Supple, Trachea Midline, No JVD Lungs: Clear to Auscultation, Normal Respiratory Effort Cardiovascular: Regular Rate, Regular Rhythm GI/Abdominal Exam: Soft, Non-Tender, No Distention, No Abnormal Bruit, Pelvis Stable, Abnormal Bowel Sounds (Hyperactive ) (Male) Exam: Deferred Back Exam: Normal Inspection, Full Range of Motion Extremities: Normal Inspection, Normal Range of Motion, Non-Tender, No Pedal Edema, Normal Capillary Refill Peripheral Pulses: 2+: Radial (L), Radial (R), Dorsalis Pedis (L), Dorsalis Pedis (R) Skin: Warm, Dry, Intact Neurological: No New Focal Deficit Psy/Mental Status: Alert, Normal Affect, Normal Mood - Problem List & Annotations (1) Lower GI bleed SNOMED Code(s): 65737043 Code(s): K92.2 - GASTROINTESTINAL HEMORRHAGE, UNSPECIFIED Status: Acute Priority: High Current Visit: Yes (2) HTN, Benign hypertension SNOMED Code(s): 64223733 Code(s): I10 - ESSENTIAL (PRIMARY) HYPERTENSION Status: Chronic Priority : Medium Current Visit: No (3) Diverticula of colon SNOMED Code(s): 622038961, 456515280 Code(s): K57.30 - DVRTCLOS OF LG INT W/O PERFORATION OR ABSCESS W/O BLEEDING Status: Chronic Priority: Medium Current Visit: No - Problem List Review Problem List Initiated/Reviewed/Updated: Yes - Plan Plan:: Assessment * Lower GI bleed * Hemoglobin 13.3 with repeat 13.9; Now 11.6 * Positive guaiac from ER physician * Dr. Manuel, surgeon, consulted by emergency room physician * history of diverticulosis and previous colon surgery without resection * History of hypertension Plan * Refer for observation medical/surgical floor telemetry * Plan colonoscopy this afternoon * Repeat CMP and CBC in the morning. Consider repeat CBC in evening after surgery. * If he has any more significant hematochezia will repeat hemoglobin. * Hold blood pressure medications until after procedure * Nothing by mouth after midnight. * VTE prophylaxis with compression stockings * CODE STATUS: Full code * Length of stay 1-2 days
[2019-04-19] MEDS ORDERED: Losartan 100 MG Tab PO SCH (11:30)
[2019-04-19] MEDS ORDERED: Hydrochlorothiazide 25 MG Tab PO SCH (11:30)
--- NOTE | 2019-04-19 13:04 | PCM.CONS ---
H&P History of Present Illness - General Date of Service: 04/18/19 Admit Problem/Dx: Admission Diagnosis/Problem Admission Diagnosis/Problem GI bleed not requiring more than 4 units of blood in 24 hours, ICU, or surgery Source of Information: Patient History Limitations: Reports: No Limitations - History of Present Illness Initial Comments - Free Text/Narative: Patient started having painless bloody bowel movements on 04/18/2019 in the morning. BRBPR into the toilet bowel. He passed a total of 4 bloody BMs today. He did feel light headed two times during this time. He presented to clinic after 2 BMs and had a third there and was transferred here. In our ED Hgb was 13.3, vitals stable and the patient had another episode of bloody BM. He denies any chest pain, SOB, dizziness. He was admitted for observation.No prior colonoscopy or EGD. Onset of Symptoms: Reports: Sudden Duration of Symptoms: Reports: Day(s):, Improving Location: Reports: Other (rectal) Improves with: Reports: None Worsens with: Reports: None Associated Symptoms: Reports: Other (light headedness twice) - Related Data Allergies/Adverse Reactions: Allergies Allergy/AdvReac Type Severity Reaction Status Date / Time Penicillins Allergy Intermediate Hives Verified 04/18/19 11:17 codeine AdvReac Anxiety Verified 04/18/19 16:34 Home Medications: Home Meds Aspirin 81 mg PO DAILY 04/18/19 [History] Losartan [Cozaar] 100 mg PO DAILY 04/18/19 [History] Multivitamin [Multivitamins] 1 tab PO DAILY 04/18/19 [History] hydroCHLOROthiazide [Hydrochlorothiazide] 25 mg PO DAILY 04/18/19 [History] traMADol [Ultram] 50 mg PO BEDTIME PRN 04/18/19 [History] Past Medical History HEENT History: Reports: Cataract Cardiovascular History: Reports: Hypertension Gastrointestinal History: Reports: Hemorrhoids, Other (See Below) Other Gastrointestinal History: diverticulosis Musculoskeletal History: Reports: Arthritis - Past Surgical History GI Surgical History: Reports: Other (See Below) Other GI Surgeries/Procedures: hiatal hernia repair with mesh Musculoskeletal Surgical History: Reports: Other (See Below) Other Musculoskeletal Surgeries/Procedures:: knee surgery d/t torn meniscus Social & Family History - Family History Family Medical History: Noncontributory - Tobacco Use Smoking Status *Q: Never Smoker Second Hand Smoke Exposure: No - Caffeine Use Caffeine Use: Reports: Coffee Other Caffeine Use: 2-3 cups coffee. 1 soda in afternoon - Recreational Drug Use Recreational Drug Use: No - Living Situation & Occupation Living situation: Reports: Occupation: Employed H&P Review of Systems - Review of Systems: Review Of Systems: See Below General: Reports: No Symptoms HEENT: Reports: No Symptoms Pulmonary: Reports: No Symptoms Cardiovascular: Reports: No Symptoms Gastrointestinal: Reports: Hematochezia Genitourinary: Reports: No Symptoms Musculoskeletal: Reports: No Symptoms Skin: Reports: No Symptoms Psychiatric: Reports: No Symptoms Neurological: Reports: No Symptoms Hematologic/Lymphatic: Reports: No Symptoms Immunologic: Reports: No Symptoms Exam - Exam Exam: See Below - Vital Signs Vital Signs: Last Vital Signs Temp 97.7 F 04/19/19 11:58 Pulse 68 04/19/19 11:58 Resp 18 04/19/19 11:58 BP 162/88 H 04/19/19 12:20 Pulse Ox 96 04/19/19 11:58 Orthostatic Blood Pressure [ 139/96 Standing] Orthostatic Blood Pressure [ 145/102 Sitting] Orthostatic Blood Pressure [ 153/94 Supine] Weight: 89.494 kg - Exam HEENT: Conjunctiva Clear, EACs Clear Neck: Supple, Trachea Midline Lungs: Clear to Auscultation, Normal Respiratory Effort Cardiovascular: Regular Rate, Regular Rhythm, Normal S1, Normal S2 GI/Abdominal Exam: Soft, Non-Tender, No Distention, No Abnormal Bruit, No Mass (Male) Exam: No Hernia - Patient Data Lab Results Last 24 hrs: Laboratory Results - last 24 hr 04/18/19 04/18/19 04/18/19 Range/Units 12:14 12:14 12:14 WBC (4.23-9.07) K/mm3 RBC (4.63-6.08) M/mm3 Hgb (13.7-17.5) gm/dl Hct (40.1-51.0) % MCV (79.0-92.2) fl MCH (25.7-32.2) pg MCHC (32.2-35.5) g/dl RDW Std Deviation (35.1-43.9) fL Plt Count (163-337) K/mm3 MPV (9.4-12.3) fl Neut % (Auto) (34.0-67.9) % Lymph % (Auto) (21.8-53.1) % [place] % (Auto) (5.3-12.2) % Eos % (Auto) (0.8-7.0) Baso % (Auto) (0.1-1.2) % Neut # (Auto) (1.78-5.38) K/mm3 Lymph # (Auto) (1.32-3.57) K/mm3 [place] # (Auto) (0.30-0.82) K/mm3 Eos # (Auto) (0.04-0.54) K/mm3 Baso # (Auto) (0.01-0.08) K/mm3 Manual Slide Review Abnormal smear PT 11.4 (9.7-12.0) SECONDS INR 1.05 APTT 27 (22-31) SECONDS Sodium 139 (136-145) mEq/L Potassium 4.1 (3.5-5.1) mEq/L Chloride 106 (98-107) mEq/L Carbon Dioxide 21 (21-32) mEq/L Anion Gap 16.1 H (5-15) BUN 20 H (7-18) mg/dL Creatinine 0.9 (0.7-1.3) mg/dL Est Cr Clr Drug Dosing 83.39 mL/min Estimated GFR (MDRD) > 60 (>60) mL/min BUN/Creatinine Ratio 22.2 H (14-18) Glucose 166 H (80-115) mg/dL Calcium 8.1 L (8.5-10.1) mg/dL Total Bilirubin 1.5 H (0.2-1.0) mg/dL AST 44 H (15-37) U/L ALT 71 H (16-63) U/L Alkaline Phosphatase 74 (46-116) U/L Total Protein 6.3 L (6.4-8.2) g/dl Albumin 3.3 L (3.4-5.0) g/dl Globulin 3.0 gm/dL Albumin/Globulin Ratio 1.1 (1-2) Blood Type Gel Antibody Screen 04/18/19 04/18/19 04/19/19 Range/Units 12:14 17:52 04:10 WBC 7.96 (4.23-9.07) K/mm3 RBC 3.60 L (4.63-6.08) M/mm3 Hgb 13.9 11.6 L D (13.7-17.5) gm/dl Hct 40.1 33.8 L (40.1-51.0) % MCV 93.9 H (79.0-92.2) fl MCH 32.2 (25.7-32.2) pg MCHC 34.3 (32.2-35.5) g/dl RDW Std Deviation 43.4 (35.1-43.9) fL Plt Count 201 (163-337) K/mm3 MPV 9.8 (9.4-12.3) fl Neut % (Auto) 63.9 (34.0-67.9) % Lymph % (Auto) 27.9 (21.8-53.1) % [place] % (Auto) 6.4 (5.3-12.2) % Eos % (Auto) 1.1 (0.8-7.0) Baso % (Auto) 0.4 (0.1-1.2) % Neut # (Auto) 5.09 (1.78-5.38) K/mm3 Lymph # (Auto) 2.22 (1.32-3.57) K/mm3 [place] # (Auto) 0.51 (0.30-0.82) K/mm3 Eos # (Auto) 0.09 (0.04-0.54) K/mm3 Baso # (Auto) 0.03 (0.01-0.08) K/mm3 Manual Slide Review PT (9.7-12.0) SECONDS INR APTT (22-31) SECONDS Sodium (136-145) mEq/L Potassium (3.5-5.1) mEq/L Chloride (98-107) mEq/L Carbon Dioxide (21-32) mEq/L Anion Gap (5-15) BUN (7-18) mg/dL Creatinine (0.7-1.3) mg/dL Est Cr Clr Drug Dosing mL/min Estimated GFR (MDRD) (>60) mL/min BUN/Creatinine Ratio (14-18) Glucose (80-115) mg/dL Calcium (8.5-10.1) mg/dL Total Bilirubin (0.2-1.0) mg/dL AST (15-37) U/L ALT (16-63) U/L Alkaline Phosphatase (46-116) U/L Total Protein (6.4-8.2) g/dl Albumin (3.4-5.0) g/dl Globulin gm/dL Albumin/Globulin Ratio (1-2) Blood Type A POSITIVE Gel Antibody Screen Negative 04/19/19 Range/Units 04:10 WBC (4.23-9.07) K/mm3 RBC (4.63-6.08) M/mm3 Hgb (13.7-17.5) gm/dl Hct (40.1-51.0) % MCV (79.0-92.2) fl MCH (25.7-32.2) pg MCHC (32.2-35.5) g/dl RDW Std Deviation (35.1-43.9) fL Plt Count (163-337) K/mm3 MPV (9.4-12.3) fl Neut % (Auto) (34.0-67.9) % Lymph % (Auto) (21.8-53.1) % [place] % (Auto) (5.3-12.2) % Eos % (Auto) (0.8-7.0) Baso % (Auto) (0.1-1.2) % Neut # (Auto) (1.78-5.38) K/mm3 Lymph # (Auto) (1.32-3.57) K/mm3 [place] # (Auto) (0.30-0.82) K/mm3 Eos # (Auto) (0.04-0.54) K/mm3 Baso # (Auto) (0.01-0.08) K/mm3 Manual Slide Review PT (9.7-12.0) SECONDS INR APTT (22-31) SECONDS Sodium 144 (136-145) mEq/L Potassium 3.9 (3.5-5.1) mEq/L Chloride 108 H (98-107) mEq/L Carbon Dioxide 28 (21-32) mEq/L Anion Gap 11.9 (5-15) BUN 15 (7-18) mg/dL Creatinine 1.0 (0.7-1.3) mg/dL Est Cr Clr Drug Dosing 75.05 mL/min Estimated GFR (MDRD) > 60 (>60) mL/min BUN/Creatinine Ratio 15.0 (14-18) Glucose 137 H (80-115) mg/dL Calcium 8.1 L (8.5-10.1) mg/dL Total Bilirubin 1.5 H (0.2-1.0) mg/dL AST 34 (15-37) U/L ALT 57 (16-63) U/L Alkaline Phosphatase 66 (46-116) U/L Total Protein 5.7 L (6.4-8.2) g/dl Albumin 3.0 L (3.4-5.0) g/dl Globulin 2.7 gm/dL Albumin/Globulin Ratio 1.1 (1-2) Blood Type Gel Antibody Screen Result Diagrams: 04/19/19 04:10 04/19/19 04:10 Consult PN Assessment/Plan Procedures: Procedures ASSAY OF CK (CPK) (07/15/14) ASSAY OF TROPONIN QUANT (07/15/14) ASSAY THYROID STIM HORMONE (07/11/16) CHEST X-RAY 1 VIEW FRONTAL (07/15/14) COMPLETE CBC W/AUTO DIFF WBC (05/24/18) COMPREHEN METABOLIC PANEL (05/24/18) CREATINE MB FRACTION (07/15/14) ELECTROCARDIOGRAM TRACING (07/15/14) EMERGENCY DEPT VISIT (07/15/14) FIBRIN DEGRADATION QUANT (07/15/14) HYDRATE IV INFUSION ADD-ON (07/15/14) LIPID PANEL (05/24/18) PROTHROMBIN TIME (07/15/14) ROUTINE VENIPUNCTURE (07/15/14) THER/PROPH/DIAG IV INF INIT (07/15/14) TX/PRO/DX INJ NEW DRUG ADDON (07/15/14) Problem List Initiated/Reviewed/Updated: No My Orders Last 24 Hours: My Active Orders 04/18/19 17:49 Schedule Procedure [COMM] Routine 04/18/19 Dinner Clear Liquid Diet [DIET] 04/19/19 Breakfast NPO After Midnight [Nothing per Oral After Midnight Diet] [DIET] Plan: Patient has painless hematochezia. Vitals are stable. - Prep for EGD/Colonoscopy. I discussed with the patient that bleeding could be coming from anywhere in the Gi tract but most commonly in the stomach or colon. Due its significance and the fact that the patient has never had a colonoscopy, I offered to do EGD/Colonoscopy to diagnose the cause if any. We discussed risks , benefits and alternatives. Risks discussed included perforation, more bleeding , reactions to medications. the patient understood and agreed to pursue the procedures. Informed consent was obtained.
--- NOTE | 2019-04-19 13:18 | PCM.PREANE ---
Preanesthetic Assessment - Anesthesia/Transfusion/Family Hx Anesthesia History: Prior Anesthesia Without Reaction Transfusion History: No Prior Transfusion(s) Intubation History: Unknown - Review of Systems General: No Symptoms Pulmonary: No Symptoms Cardiovascular: No Symptoms Gastrointestinal: No Symptoms Neurological: No Symptoms Other: Reports: None - Physical Assessment NPO Status Date: 04/19/19 NPO Status Time: 09:00 (CLQ for imaging/ bowel prep) Vital Signs: Last Vital Signs Temp 97.7 F 04/19/19 11:58 Pulse 68 04/19/19 11:58 Resp 18 04/19/19 11:58 BP 162/88 H 04/19/19 12:20 Pulse Ox 96 04/19/19 11:58 Orthostatic Blood Pressure [ 139/96 Standing] Orthostatic Blood Pressure [ 145/102 Sitting] Orthostatic Blood Pressure [ 153/94 Supine] Height: 1.73 m Weight: 89.494 kg ASA Class: 2 Mental Status: Alert & Oriented x3 Dentition: Reports: Normal Dentition Thyro-Mental Finger Breadths: 3 Mouth Opening Finger Breadths: 3 ROM/Head Extension: Full Lungs: Clear to Auscultation Cardiovascular: Regular Rate - Lab Values: Laboratory Last Values WBC 7.96 K/mm3 (4.23-9.07) 04/19/19 04:10 RBC 3.60 M/mm3 (4.63-6.08) L 04/19/19 04:10 Hgb 11.6 gm/dl (13.7-17.5) L D 04/19/19 04:10 Hct 33.8 % (40.1-51.0) L 04/19/19 04:10 MCV 93.9 fl (79.0-92.2) H 04/19/19 04:10 MCH 32.2 pg (25.7-32.2) 04/19/19 04:10 MCHC 34.3 g/dl (32.2-35.5) 04/19/19 04:10 RDW Std Deviation 43.4 fL (35.1-43.9) 04/19/19 04:10 Plt Count 201 K/mm3 (163-337) 04/19/19 04:10 MPV 9.8 fl (9.4-12.3) 04/19/19 04:10 Neut % (Auto) 63.9 % (34.0-67.9) 04/19/19 04:10 Lymph % (Auto) 27.9 % (21.8-53.1) 04/19/19 04:10 [place] % (Auto) 6.4 % (5.3-12.2) 04/19/19 04:10 Eos % (Auto) 1.1 (0.8-7.0) 04/19/19 04:10 Baso % (Auto) 0.4 % (0.1-1.2) 04/19/19 04:10 Neut # (Auto) 5.09 K/mm3 (1.78-5.38) 04/19/19 04:10 Lymph # (Auto) 2.22 K/mm3 (1.32-3.57) 04/19/19 04:10 [place] # (Auto) 0.51 K/mm3 (0.30-0.82) 04/19/19 04:10 Eos # (Auto) 0.09 K/mm3 (0.04-0.54) 04/19/19 04:10 Baso # (Auto) 0.03 K/mm3 (0.01-0.08) 04/19/19 04:10 Manual Slide Review Abnormal smear 04/18/19 12:14 PT 11.4 SECONDS (9.7-12.0) 04/18/19 12:14 INR 1.05 04/18/19 12:14 APTT 27 SECONDS (22-31) 04/18/19 12:14 Sodium 144 mEq/L (136-145) 04/19/19 04:10 Potassium 3.9 mEq/L (3.5-5.1) 04/19/19 04:10 Chloride 108 mEq/L (98-107) H 04/19/19 04:10 Carbon Dioxide 28 mEq/L (21-32) 04/19/19 04:10 Anion Gap 11.9 (5-15) 04/19/19 04:10 BUN 15 mg/dL (7-18) 04/19/19 04:10 Creatinine 1.0 mg/dL (0.7-1.3) 04/19/19 04:10 Est Cr Clr Drug Dosing 75.05 mL/min 04/19/19 04:10 Estimated GFR (MDRD) > 60 mL/min (>60) 04/19/19 04:10 BUN/Creatinine Ratio 15.0 (14-18) 04/19/19 04:10 Glucose 137 mg/dL (80-115) H 04/19/19 04:10 Calcium 8.1 mg/dL (8.5-10.1) L 04/19/19 04:10 Total Bilirubin 1.5 mg/dL (0.2-1.0) H 04/19/19 04:10 AST 34 U/L (15-37) 04/19/19 04:10 ALT 57 U/L (16-63) 04/19/19 04:10 Alkaline Phosphatase 66 U/L (46-116) 04/19/19 04:10 Total Protein 5.7 g/dl (6.4-8.2) L 04/19/19 04:10 Albumin 3.0 g/dl (3.4-5.0) L 04/19/19 04:10 Globulin 2.7 gm/dL 04/19/19 04:10 Albumin/Globulin Ratio 1.1 (1-2) 04/19/19 04:10 Blood Type A POSITIVE 04/18/19 12:14 Gel Antibody Screen Negative 04/18/19 12:14 - Imaging/EKG Impressions: SR with RBBB , reviewed - Allergies Allergies/Adverse Reactions: Allergies Allergy/AdvReac Type Severity Reaction Status Date / Time Penicillins Allergy Intermediate Hives Verified 04/18/19 11:17 codeine AdvReac Anxiety Verified 04/18/19 16:34 - Acknowledgements Anesthesia Type Planned: General Anesthesia, MAC Pt an Appropriate Candidate for the Planned Anesthesia: Yes Alternatives and Risks of Anesthesia Discussed w Pt/Guardian: Yes Pt/Guardian Understands and Agrees with Anesthesia Plan: Yes PreAnesthesia Questionnaire HEENT History: Reports: Cataract Cardiovascular History: Reports: Hypertension Gastrointestinal History: Reports: Hemorrhoids, Other (See Below) Other Gastrointestinal History: diverticulosis Musculoskeletal History: Reports: Arthritis - Past Surgical History GI Surgical History: Reports: Other (See Below) Other GI Surgeries/Procedures: hiatal hernia repair with mesh Musculoskeletal Surgical History: Reports: Other (See Below) Other Musculoskeletal Surgeries/Procedures:: knee surgery d/t torn meniscus - SUBSTANCE USE Smoking Status *Q: Never Smoker Second Hand Smoke Exposure: No Recreational Drug Use History: No - HOME MEDS Home Medications: Home Meds Aspirin 81 mg PO DAILY 11/07/19 [History] Losartan [Cozaar] 100 mg PO DAILY 04/18/19 [History] Multivitamin [Multivitamins] 1 tab PO DAILY 04/18/19 [History] hydroCHLOROthiazide [Hydrochlorothiazide] 25 mg PO DAILY 04/18/19 [History] traMADol [Ultram] 50 mg PO BEDTIME PRN 04/18/19 [History] - CURRENT (IN HOUSE) MEDS Current Meds: Current Medications Hydrochlorothiazide (Hydrochlorothiazide) 25 mg PO DAILY [facility] Last Admin: 04/19/19 12:21 Dose: Not Given Losartan Potassium (Cozaar) 100 mg PO DAILY [facility] Last Admin: 04/19/19 12:20 Dose: 100 mg Ondansetron HCl (Zofran) 4 mg IV Q4H PRN PRN Reason: Nausea/Vomiting Tramadol HCl (Ultram) 50 mg PO BEDTIME PRN PRN Reason: Rib Pain Discontinued Medications Lactated Ringer's (Ringers, Lactated) 1,000 mls @ 999 mls/hr IV .BOLUS ONE Stop: 04/18/19 13:18 Last Admin: 04/18/19 12:22 Dose: 999 mls/hr Sodium Chloride (Normal Saline) Confirm Administered Dose 1,000 mls @ as directed .ROUTE .STK-MED ONE Stop: 04/18/19 12:17 Last Admin: 04/18/19 12:23 Dose: Not Given Dextrose/Lactated Ringer's (Dextrose 5%-Lactated Ringers) 1,000 mls @ 75 mls/ hr IV ASDIRECTED [facility] Last Admin: 04/18/19 20:54 Dose: 75 mls/hr Polyethylene Glycol/Electrolytes (Golytely) 4,000 ml PO ONETIME ONE Stop: 04/18/19 17:22 Last Admin: 04/18/19 19:05 Dose: 4,000 ml
[2019-04-19] MEDS ORDERED: Propofol 200 MG/20 ML SDV ONE (13:23)
[2019-04-19] MEDS ORDERED: Lidocaine 1% 6 ML ONE (13:35)
[2019-04-19] MEDS ORDERED: Lactated Ringers 1,000 ML ONE (15:35)
[2019-04-19] MEDS ORDERED: Midazolam 1 MG/ML 2 ML SDV ONE (15:41)
[2019-04-19] MEDS ORDERED: fentaNYL 100 MCG/2 ML SDV ONE (15:50)
--- NOTE | 2019-04-19 16:39 | PCM48HPAN ---
Post Anesthesia Note - EVALUATION WITHIN 48HRS OF ANESTHETIC Vital Signs in Normal Range: Yes Patient Participated in Evaluation: Yes Respiratory Function Stable: Yes Airway Patent: Yes Cardiovascular Function Stable: Yes Hydration Status Stable: Yes Pain Control Satisfactory: Yes Nausea and Vomiting Control Satisfactory: Yes Mental Status Recovered: Yes Vital Signs: Last Vital Signs Temp 97.9 F 04/19/19 14:41 Pulse 69 04/19/19 14:42 Resp 18 04/19/19 11:58 BP 140/99 H 04/19/19 14:54 Pulse Ox 98 04/19/19 14:42 Orthostatic Blood Pressure [ 139/96 Standing] Orthostatic Blood Pressure [ 145/102 Sitting] Orthostatic Blood Pressure [ 153/94 Supine] Postprocedure: BP 133/64, HR 78, RR 16, T 97.7, SpO2 95%
[2019-04-19 16:49] VITALS: BP 142/78; PULSE 77
--- NOTE | 2019-04-19 17:20 | OR ---
DATE OF OPERATION: 04/19/2019 SURGEON: Michelle Manuel MD PREOPERATIVE DIAGNOSIS: Gastrointestinal bleeding. POSTOPERATIVE DIAGNOSIS: 1. [place]-colored mucosa at the gastroesophageal junction, suspicious for [place] esophagus. No stigmata of bleeding in the stomach. 2. Small amount of fecal material and blood clots in the sigmoid diverticulum, suspicion for diverticular bleeding. No polyps. Grade 3 hemorrhoids. 3. Medium-sized hiatal hernia. OPERATION PERFORMED: 1. Esophagogastroduodenoscopy with biopsy. 2. Colonoscopy. ANESTHESIA: Monitored anesthesia care. INDICATION AND CONSENT: The patient is a 63-year-old male who developed painless bleeding yesterday which was significant. The patient was transferred to the hospital, and I was called to evaluate the patient. The patient's vital signs were stable. Hemoglobin was 13 and bleeding episodes had stopped by the time I evaluated the patient at the end of the day on 04/18/2019. Because of the stability of the patient, I offered to proceed with EGD and colonoscopy after prep to evaluate the cause of bleeding. The patient agreed to proceed with the procedure and informed consent was obtained. DESCRIPTION OF PROCEDURE: The patient was taken to the operating room, placed in left lateral decubitus position. Following induction of monitored anesthesia, a bite block was placed and esophagogastroduodenoscopy was performed. The scope was advanced through the mouth into the esophagus all the way into the second portion of duodenum. Duodenum was normal. Stomach appeared to be normal. The patient had a medium- sized hiatal hernia without any [place] ulcers and the scope was withdrawn into the GE junction. This area appeared to have salmon-colored mucosa and irregular Z-line. Therefore, a biopsy was taken here for pathologic evaluation. Then, the stomach was suctioned out and the esophagus was examined. The mucosa appeared to be normal. There was no stigmata of bleeding in the esophagus, stomach, as well as duodenum. The scope was withdrawn. Then, we turned our attention to the colonoscopy. On perianal exam, there were grade 3 hemorrhoids present. There was no stigmata of bleeding on the hemorrhoids. The scope was inserted and advanced all the way to the cecum. The prep was excellent. The appendiceal orifice as well as the ileocecal valve were photographed. The scope was slowly withdrawn. Upon withdrawal in the sigmoid colon, around 55 cm from the anal verge, we noted several large diverticula lodged with fecal material and some blood clots over the top. There were 3 or 4 hemorrhoids of this sort with a little bit of blood clot. There was no stigmata of active bleeding anywhere and photographs were taken here and the scope withdrawn. There were no polyps or AVMs or angiodysplasia anywhere during this examination. There were some superficial veins that appeared to be intact and lined with mucosa. There was no stigmata of any recent active bleeding. Upon retroflexed views of the rectum, we noted once again the grade 3 hemorrhoids. These were not bleeding and there was no stigmata of recent bleeding here. Therefore, the scope was withdrawn after suctioning out some air and the procedure concluded. So in summary, the patient has medium-sized hiatal hernia and salmon-colored mucosa in the esophagus. There was no stigmata of bleeding in the esophagus, stomach, or duodenum. In the colonoscopy, the patient had large numerous diverticula that appeared to have bled due to some blood clots and fecal material in some of these diverticula. There were no polyps, and the patient had grade 3 hemorrhoids. This marked the end of the procedure. At the end of the procedure, the patient was awoken from anesthesia and taken to the PACU in stable condition. The patient may be discharged home today, and we will call the patient with pathology result. I recommend repeat screening colonoscopy in 10 years. ESTIMATED BLOOD LOSS: PIERRE /[id number] ALVARO
--- NOTE | 2019-04-19 18:09 | PCM.DCSUM1 ---
Discharge Summary - Hospital Course HPI Initial Comments: 63-year-old male with history of diverticulitis and previous bowel surgery for it sounds like intussusception presented to his primary care provider in [place] with multiple bloody bowel movements this morning. Patient states his first bowel movement in the morning was bloody and he had several subsequent and he went to his primary care provider. Wall he was being evaluated he developed diaphoresis became lightheaded and then lost consciousness. When he woke up he had significant amount of blood from his rectum and his provider and team were treating him. Patient IV placed and EMS was called. Patient has syncopal episode on the table so did not have any fall. Patient takes a low-dose aspirin daily and uses ibuprofen regularly. He does not smoke and rarely drinks. In the emergency room he had another presyncopal episode when he was having his blood drawn. His heart rate dropped into the 40s and systolic blood pressure dropped to 60. He was given 1 L LR and recovered. Initial vital signs: Temperature 37.0C, pulse 68, respiratory rate of 11, blood pressure 144 systolic, but diastolic was put in in error. Orthostatics were negative. Labs: White count 13.6, hemoglobin 13.3, platelets 221, INR 1.05, PT 11.4, APTT 27, electrolytes normal, BUN 20, creatinine 0.9, total bilirubin 1.5, AST 44, ALT 71 , glucose 166, anion gap 16.1. Repeat hemoglobin 13.9. Diagnosis: Stroke: No - Discharge Data Discharge Date: 04/19/19 Discharge Disposition: Home, Self-Care 01 Condition: Good - Referral to Home Health Primary Care Physician: Amanda Damon NP - Patient Summary/Data Consults: Consultations 04/18/19 14:51 Consult to Physician [CONS] Stat Hospital Course: patient was admitted and placed nothing by mouth. Dr. Manuel performed an EGD with biopsy and colonoscopy. Postop diagnosis: 1. Systemic colored mucosa at the gastroesophageal junction, suspicious for Casillas's esophagus. No stigmata of bleeding in the stomach. 2. Small amount of fecal material and blood clots in the sigmoid diverticulum, suspicious for diverticular bleeding. No polyps. Grade 3 hemorrhoids. 3. Medium sized hiatal hernia. Patient did well and was discharged postop for follow-up. - Patient Instructions Diet: Heart Healthy Diet Activity: As Tolerated Driving: Do Not Drive (until 24 hours post anesthesia) Showering/Bathing: May Shower Notify Provider of: Fever, Increased Pain, Nausea and/or Vomiting Other/Special Instructions: High fiber diet - Discharge Plan *PRESCRIPTION DRUG MONITORING PROGRAM REVIEWED*: Not Applicable *COPY OF PRESCRIPTION DRUG MONITORING REPORT IN PATIENT TYSHAWN: Not Applicable Home Medications: Home Meds Aspirin 81 mg PO DAILY 04/18/19 [History] Losartan [Cozaar] 100 mg PO DAILY 04/18/19 [History] Multivitamin [Multivitamins] 1 tab PO DAILY 04/18/19 [History] hydroCHLOROthiazide [Hydrochlorothiazide] 25 mg PO DAILY 04/18/19 [History] traMADol [Ultram] 50 mg PO BEDTIME PRN 04/18/19 [History] Oxygen Therapy Mode: Room Air Patient Handouts: Gastrointestinal Bleeding Forms: ED Department Discharge Referrals: Amanda Damon [facility] [Primary Care Provider] - (please schedule a follow up appointment with your primary care provider within 7-10 days) - Discharge Summary/Plan Comment DC Time >30 min.: Yes Discharge Summary/Plan Comment: Follow up with PCP next week. Discharge to home. Hb stabilized at time of discharge. No active bleeding on endoscopy. - Patient Data Vitals - Most Recent: Last Vital Signs Temp 97.9 F 04/19/19 14:41 Pulse 77 04/19/19 16:37 Resp 18 04/19/19 11:58 BP 142/78 H 04/19/19 16:37 Pulse Ox 94 L 04/19/19 16:37 Orthostatic Blood Pressure [ 139/96 Standing] Orthostatic Blood Pressure [ 145/102 Sitting] Orthostatic Blood Pressure [ 153/94 Supine] Weight - Most Recent: 197 lb 4.8 oz I&O - Last 24 hours: Intake & Output 04/19/19 04/19/19 04/19/19 06:59 14:59 22:59 Intake Total 2800 Balance 2800 Lab Results - Last 24 hrs: Laboratory Results - last 24 hr 04/19/19 04/19/19 04/19/19 Range/Units 04:10 04:10 17:56 WBC 7.96 (4.23-9.07) K/mm3 RBC 3.60 L (4.63-6.08) M/mm3 Hgb 11.6 L D 11.9 L (13.7-17.5) gm/dl Hct 33.8 L 35.0 L (40.1-51.0) % MCV 93.9 H (79.0-92.2) fl MCH 32.2 (25.7-32.2) pg MCHC 34.3 (32.2-35.5) g/dl RDW Std Deviation 43.4 (35.1-43.9) fL Plt Count 201 (163-337) K/mm3 MPV 9.8 (9.4-12.3) fl Neut % (Auto) 63.9 (34.0-67.9) % Lymph % (Auto) 27.9 (21.8-53.1) % [place] % (Auto) 6.4 (5.3-12.2) % Eos % (Auto) 1.1 (0.8-7.0) Baso % (Auto) 0.4 (0.1-1.2) % Neut # (Auto) 5.09 (1.78-5.38) K/mm3 Lymph # (Auto) 2.22 (1.32-3.57) K/mm3 [place] # (Auto) 0.51 (0.30-0.82) K/mm3 Eos # (Auto) 0.09 (0.04-0.54) K/mm3 Baso # (Auto) 0.03 (0.01-0.08) K/mm3 Sodium 144 (136-145) mEq/L Potassium 3.9 (3.5-5.1) mEq/L Chloride 108 H (98-107) mEq/L Carbon Dioxide 28 (21-32) mEq/L Anion Gap 11.9 (5-15) BUN 15 (7-18) mg/dL Creatinine 1.0 (0.7-1.3) mg/dL Est Cr Clr Drug Dosing 75.05 mL/min Estimated GFR (MDRD) > 60 (>60) mL/min BUN/Creatinine Ratio 15.0 (14-18) Glucose 137 H (80-115) mg/dL Calcium 8.1 L (8.5-10.1) mg/dL Total Bilirubin 1.5 H (0.2-1.0) mg/dL AST 34 (15-37) U/L ALT 57 (16-63) U/L Alkaline Phosphatase 66 (46-116) U/L Total Protein 5.7 L (6.4-8.2) g/dl Albumin 3.0 L (3.4-5.0) g/dl Globulin 2.7 gm/dL Albumin/Globulin Ratio 1.1 (1-2) Med Orders - Current: Current Medications Hydrochlorothiazide (Hydrochlorothiazide) 25 mg PO DAILY [facility] Last Admin: 04/19/19 12:21 Dose: Not Given Losartan Potassium (Cozaar) 100 mg PO DAILY [facility] Last Admin: 04/19/19 12:20 Dose: 100 mg Ondansetron HCl (Zofran) 4 mg IV Q4H PRN PRN Reason: Nausea/Vomiting Tramadol HCl (Ultram) 50 mg PO BEDTIME PRN PRN Reason: Rib Pain Discontinued Medications Fentanyl (Sublimaze) Confirm Administered Dose 100 mcg .ROUTE .STK-MED ONE Stop: 04/19/19 15:51 Lactated Ringer's (Ringers, Lactated) 1,000 mls @ 999 mls/hr IV .BOLUS ONE Stop: 04/18/19 13:18 Last Admin: 04/18/19 12:22 Dose: 999 mls/hr Sodium Chloride (Normal Saline) Confirm Administered Dose 1,000 mls @ as directed .ROUTE .STK-MED ONE Stop: 04/18/19 12:17 Last Admin: 04/18/19 12:23 Dose: Not Given Dextrose/Lactated Ringer's (Dextrose 5%-Lactated Ringers) 1,000 mls @ 75 mls/ hr IV ASDIRECTED [facility] Last Admin: 04/18/19 20:54 Dose: 75 mls/hr Lidocaine HCl (Xylocaine-Mpf 1%) Confirm Administered Dose 6 mls @ as directed .ROUTE .STK-MED ONE Stop: 04/19/19 13:36 Lactated Ringer's (Ringers, Lactated) Confirm Administered Dose 1,000 mls @ as directed .ROUTE .STK-MED ONE Stop: 04/19/19 15:36 Midazolam HCl (Versed 1 Mg/Ml) Confirm Administered Dose 2 mg .ROUTE .STK-MED ONE Stop: 04/19/19 15:42 Polyethylene Glycol/Electrolytes (Golytely) 4,000 ml PO ONETIME ONE Stop: 04/18/19 17:22 Last Admin: 04/18/19 19:05 Dose: 4,000 ml Propofol (Diprivan 20 Ml) Confirm Administered Dose 400 mg .ROUTE .[facility] ONE Stop: 04/19/19 13:24
== END 2019-04-19 18:42 | disposition home or self-care (01) ==
LOC: JD.ED 11:03 → JD.MS 15:41
PROVIDERS: ADMIT Family Medicine; ATTEND Family Medicine
DX: K57.31 Diverticulosis of large intestine without perforation or abscess with bleeding (principal); K44.9 Diaphragmatic hernia without obstruction or gangrene; K20.8 Other esophagitis; K64.2 Third degree hemorrhoids; I10 Essential (primary) hypertension; M19.90 Unspecified osteoarthritis, unspecified site; Z88.0 Allergy status to penicillin; Z88.5 Allergy status to narcotic agent; Z87.19 Personal history of other diseases of the digestive system
CPT/HCPCS: 36415; 43239; 45378; 74018; 80053; 85014; 85018; 85025; 85610; 85730; 86850; 86900; 86901; 93005; 96360; 96361; 99285; A9270; G0378; J2001; J2250; J2704; J3010; J7042; J7120; 00813; 99217; 99219; 99284

== ENCOUNTER 2020-12-26 18:14 | Emergency (ER) | payer BC ==
[2020-12-26 18:50] VITALS: BP 201/124; PULSE 76
--- NOTE | 2020-12-26 19:16 | EDM.PDOC ---
ED HPI GENERAL MEDICAL PROBLEM - General Chief Complaint: Head Injury Stated Complaint: HEAD INJURY Time Seen by Provider: 12/26/20 19:06 - History of Present Illness INITIAL COMMENTS - FREE TEXT/NARRATIVE: 65-year-old male presents the emergency room after falling and hitting his head. The patient stumbled over up a piece of uneven concrete sticking up several inches and fell backwards striking the back of his head. He had quite a bit of swelling initially but this is coming down. Patient had no loss of consciousness he has had no nausea vomiting no unusual feelings. This occurred roughly an hour and a half prior to presentation to the emergency room. Patient denies any other injuries associated with this most unfortunate mishap. Patient is not on any blood thinners other than a baby aspirin. - Related Data Allergies Allergy/AdvReac Type Severity Reaction Status Date / Time Penicillins Allergy Intermediate Hives Verified 12/26/20 18:49 codeine AdvReac Anxiety Verified 12/26/20 18:49 Home Meds: Home Meds Aspirin 81 mg PO DAILY 04/18/19 [History] Losartan [Cozaar] 100 mg PO DAILY 04/18/19 [History] Multivitamin [Multivitamins] 1 tab PO DAILY 04/18/19 [History] Past Medical History HEENT History: Reports: Cataract Cardiovascular History: Reports: Hypertension Gastrointestinal History: Reports: Hemorrhoids, Other (See Below) Other Gastrointestinal History: diverticulosis Musculoskeletal History: Reports: Arthritis - Past Surgical History GI Surgical History: Reports: Other (See Below) Other GI Surgeries/Procedures: hiatal hernia repair with mesh Musculoskeletal Surgical History: Reports: Other (See Below) Other Musculoskeletal Surgeries/Procedures:: knee surgery d/t torn meniscus Social & Family History - Family History Family Medical History: No Pertinent Family History - Tobacco Use Tobacco Use Status *Q: Never Tobacco User - Caffeine Use Caffeine Use: Reports: Coffee Other Caffeine Use: 2-3 cups coffee. 1 soda in afternoon - Living Situation & Occupation Living situation: Reports: Occupation: Employed ED ROS GENERAL - Review of Systems Review Of Systems: See Below Constitutional: Reports: No Symptoms HEENT: Reports: No Symptoms Respiratory: Reports: No Symptoms Cardiovascular: Reports: No Symptoms Endocrine: Reports: No Symptoms GI/Abdominal: Reports: No Symptoms : Reports: No Symptoms Musculoskeletal: Reports: No Symptoms Skin: Reports: No Symptoms Neurological: Reports: No Symptoms ED EXAM, HEAD INJURY - Physical Exam Exam: See Below Exam Limited By: No Limitations General Appearance: Alert, No Apparent Distress Head: Normocephalic, Other (He has soft tissue swelling over the posterior aspect of the scalp favoring the right side. This is nonerythematous no abrasion and according to the patient is actually getting smaller over time.) Nexus Criteria: No: Posterior, Midline Cervical Tenderness, Evidence of Intoxication, Altered Level of Consciousness, Focal Neurological Deficit, Painful Distraction Injuries Eyes: Bilateral Eye: EOMI, Normal Fundi, PERRL Ears: Normal External Exam, Normal Canal, Hearing Grossly Normal, Normal TMs Nose: Normal Inspection, Normal Mucousa, No Blood Throat/Mouth: Normal Inspection, Normal Lips, Normal Teeth, Normal Gums, Normal Oropharynx, Normal Voice, No Airway Compromise Neck: Non-Tender, Full Range of Motion, Normal Alignment, Normal Inspection. No: Limited Range of Motion, Muscle Spasm, Painful Range of Motion, Paraspinous Muscle Tender, Spinous Processes Tender Respiratory: No Respiratory Distress, Lungs Clear, Normal Breath Sounds, No Accessory Muscle Use, Chest Non-Tender Cardiovascular: Normal Peripheral Pulses, Regular Rate, Rhythm, No Edema, No Gallop, No JVD, No Murmur, No Rub GI/Abdominal Exam: Normal Bowel Sounds, Soft, Non-Tender Back Exam: Normal Inspection. No: CVA Tenderness (L), CVA Tenderness (R) Extremities: Normal Inspection, Normal Range of Motion, Non-Tender, No Pedal Edema, Normal Capillary Refill Neurologic: Other (Cranial nerves II through XII grossly intact all muscle groups in the upper and lower extremities are equal and appropriate bilaterally cerebellar testing is entirely within normal limits deep tendon reflexes are equal and appropriate at the patella tendon bilaterally) Skin: Normal Color - [place] Coma Score Best Eye Response ([place]): (4) Open Spontaneously Best Verbal Response ([place]): (5) Oriented Best Motor Response ([place]): (6) Obeys Commands [place] Total: 15 Course - Vital Signs Last Recorded V/S: Last Vital Signs Temp 36.6 C 12/26/20 18:47 Pulse 76 12/26/20 18:47 Resp 18 12/26/20 18:47 BP 201/124 H 12/26/20 18:47 Pulse Ox 97 12/26/20 18:47 - Re-Assessments/Exams Free Text/Narrative Re-Assessment/Exam: 12/26/20 19:28 Patient has a normal neurologic examination no loss of consciousness no concerning symptoms and he is not on anticoagulation. His blood pressure is quite concerning. I discussed the pros and cons of CT evaluation and the patient would like to hold off on this at this point. His blood pressure is als o very concerning he takes losartan once daily he is not sure the dose but he does take it daily. His preference is to follow-up with his regular provider in [place] on Monday to have this rechecked. Stressed the importance of him trying to take it easy no heavy exertional activity if he needs to get plenty of rest to get it. We again discussed the importance of proper blood pressure management and again he would rather follow-up in the clinic then may try and lower his blood pressure at this point because he has to get back to work. Patient understands in no uncertain terms to return to the emergency room with any concerning symptoms unusual behavior. Departure - Departure Time of Disposition: 19:31 Disposition: Home, Self-Care 01 Clinical Impression: Head injury, Severe hypertension - Discharge Information Referrals: Amanda Damon [employer] [Primary Care Provider] - Additional Instructions: Return to the emergency room with any questions problems or worsening symptoms. Follow-up in the [place] clinic on Monday as we discussed for recheck your blood pressure. And discuss how you are feeling after your head injury. Allow yourself to get as much rest as you need stay well-hydrated. Sepsis Event Note (ED) - Evaluation Sepsis Screening Result: No Definite Risk - Focused Exam Vital Signs: Vital Signs Temp Pulse Resp BP Pulse Ox 12/26/20 18:47 36.6 C 76 18 201/124 H 97
== END 2020-12-26 19:45 | disposition home or self-care (01) ==
LOC: JD.ED 18:14
DX: S09.90XA Unspecified injury of head, initial encounter (principal); I10 Essential (primary) hypertension; Z88.5 Allergy status to narcotic agent; Z88.0 Allergy status to penicillin; Z79.82 Long term (current) use of aspirin; Z79.899 Other long term (current) drug therapy; W18.09XA Striking against other object with subsequent fall, initial encounter
CPT/HCPCS: 99283